=== PATIENT | male | born 1975 | race Caucasian/White ===

== ENCOUNTER → 2016-09-25 | Outpatient (CLI) | payer BC ==
[~2016-09-25] MED LIST: PANT1TAB48 PO; ZLF/100 PO
[2016-09-25 12:37] LABS: BASO % 0.3 %; BASO ABS # 0.02 K/uL (0-0.2); COMPLETE YES; HEMATOCRIT 46.8 % (42-52); IG% 0.1 %; LYMPH % 40.2 %; LYMPH ABS # 2.69 K/uL (1.2-3.4); MEAN CELL VOLUME 87.8 fL (80-100); MEAN CORPUSCULAR HEMOGLOBIN 31.7 pg (25-34); MEAN CORPUSCULAR HGB CONC 36.1 g/dl (32-36); MONO % 6.3 %; NEUT % 50.1 %; PLATELET COUNT 185 K/uL (130-400); RED BLOOD COUNT 5.33 M/uL (4.7-6.1); WHITE BLOOD COUNT 6.69 K/uL (4.8-10.8)
[2016-09-25 12:57] LABS: THYROID STIMULATING HORMONE 1.27 uIu/ml (0.300-4.500)
== END | disposition home or self-care (01) ==
LOC: C.LABBFT 08:16
PROVIDERS: ATTEND Psychiatry & Neurology Psychiatry
DX: F41.1 Generalized anxiety disorder (principal)

== ENCOUNTER 2024-07-25 10:49 | Observation (INO) ==
--- NOTE | 2024-07-21 10:22 | Anesthesiology Consultation ---
Date of Service July 21, 2024 Assessment & Plan (1) Encounter for pre-operative examination: - Infectious disease screening: Per assessment on 07/21/24- No known recent infectious disease contacts or current infectious disease symptoms. - [facility] ER visit (07/12/24): "The patient presents with complaint of lower back pain radiating down the right leg, as well as wrapping around to the right testicle as well. The patient denies any testicular or scrotal swelling. He also reports that he had a incontinence this past Wednesday while sitting in a chair. Given the patient's presenting symptoms, I did feel that MRI imaging was warranted, which showed evidence for a large central disc herniation versus disc fragment at L5-S1, with additional severe mass effect against the thecal sac, as well as compression against the right descending S1 nerve root. The case was discussed with Dr. Marin, spine surgeon, who recommended outpatient management as long as the patient has adequate pain control. It is noted that the patient was only administered IV Toradol and Decadron with good pain relief, and the patient felt comfortable with outpatient management. Contact information was provided for Dr. Marin. The patient was welcomed to return to the emergency department for any progressively worsening symptoms." Chart Review Chart Review: Acceptable Risk for Surgery and Patient seen in Pre Admission Testing Teaching & Discussion Pre-Anesthesia Teaching/Discussion Notes: Instructed NPO after midnight before surgery,except medications with 15 cc of water. Medication instructions provided according to the PAT guidelines. History Surgery Operation Date: 07/25/24 12:50 Proposed Procedures p Right L5-S1 Microdiscectomy - Xavier Marin MD Height/Weight Height: 5 ft 11 in Weight: 129.5 kg Allergies Allergy/AdvReac Type Severity Reaction Status Date / Time No Known Allergies Allergy Unknown Verified 07/20/24 13:36 Medications Home Medications Medication Instructions Recorded Confirmed Last Taken sertraline 100 mg tablet 200 mg (2 x 100 mg) PO QAM Anxiety 08/16/23 07/20/24 Unknown 90 days #180 tabs ibuprofen 800 mg tablet 800 mg PO Q8H PRN pain #30 tabs 04/24/24 07/20/24 Unknown oxycodone 5 mg tablet 5 mg PO Q4H PRN pain #15 tabs 07/12/24 07/20/24 Unknown acetaminophen 500 mg tablet 1,000 mg PO Q6H PRN Pain 12/12/24 12/12/24 Unknown amlodipine 5 mg tablet 5 mg PO QAM 07/20/24 07/20/24 Unknown gabapentin 300 mg capsule 300 mg PO TID #30 caps 07/20/24 07/20/24 Unknown rosuvastatin 5 mg tablet 5 mg PO QAM 07/20/24 07/20/24 Unknown tizanidine 4 mg tablet 4 mg PO BID PRN muscle spasticity 07/20/24 07/20/24 Unknown #30 tabs tramadol 50 mg tablet 50 mg PO TID PRN pain #30 tabs 07/20/24 07/20/24 Unknown Past Medical History Medical History Anxiety and depression Dyslipidemia Essential hypertension GERD (gastroesophageal reflux disease) Lumbar back pain Lumbar disc herniation with radiculopathy Osteoarthritis Exercise / Class Metabolic Activity II 4-5 Yardwork/Stairs/Walk up hill Past Family History Family History Grandmother (Maternal) Colon cancer Father CHF (congestive heart failure) Mother Graves disease Sister Hypothyroidism Other No family history of adverse response to anesthesia Prostate cancer Denies family history of Breast cancer Past Surgical History Surgical History H/O wisdom tooth extraction History of colonoscopy History of esophagogastroduodenoscopy (EGD) Past Anesthesia History No Hx of Anesthesia Complications and No Family Hx of Anesthesia Complications History of PONV No Hx of PONV and No Hx of Motion Sickness Social History Smoking Status: Never smoker Do You Dip or Chew Tobacco: No Hx Alcohol Use: Yes Alcohol type: beer alcohol intake frequency: a few times a week Hx Substance Use: No substance use type: does not use Review of Systems Patient denies chest pain, shortness of breath, dyspnea on exertion, fever, chills, cough, wheezing, palpitations. Physical Exam Vital Signs BP 148/94 P 81 TEMP 98.4 SP02 98%RA RESP 14 Physical Full cervical extension range of motion. Full TMJ range of motion. TMD > 3.5 finger breaths Mallampati Score III Dentition: intact Lungs: clear throughout to auscultation Cardiac: regular rate and rhythm, no murmurs noted Spine: normal Carotid arteries: negative bruit Lab Results Anesthesia Preop Results Results Anesthesia Widget: WBC 4.96 K/ul (4.8-10.8) 07/12/24 Hgb 15.7 g/dl (14.0-18.0) 07/12/24 Hct 44.0 % (42.0-52.0) 07/12/24 Plt 144 K/uL (130-400) 07/12/24 Na 140 mmol/L (136-145) 07/12/24 K 3.9 mmol/L (3.5-5.1) 07/12/24 Cl 107 mmol/L (98-107) 07/12/24 CO2 28 mmol/L (21-32) 07/12/24 BUN 19 mg/dl (6-23) 07/12/24 Creat 1.09 mg/dl (0.6-1.4) 07/12/24 Glucose Level 100 mg/dl (70-99(Fasting)) H 07/12/24 PT 10.9 Seconds (9.0-12.0) 07/12/24 PTT 26 Seconds (21-31) 07/12/24 INR 1.0 (0.9-1.1) 07/12/24 Blood Type O Positive 07/21/24 Antibody Screen NEGATIVE 07/21/24 Testing Electrocardiogram Date: 07/21/24 Findings: + NSR @ (67) Chest X-Ray Date: 07/21/24 FINDINGS: Lungs and pleural spaces: No consolidation or pulmonary edema. No pleural effusion or pneumothorax. Heart: Normal shape and configuration. Mediastinum: Normal contour. Bones/joints: No fracture, erosion or dislocation. IMPRESSION: No abnormality noted. Other Testing Lumbar spine MRI Date: 07/12/24 IMPRESSION: 1. Large central disc extrusion versus sequestered disc fragment at L5-S1 which results in severe central canal stenosis with severe mass effect upon the thecal sac. In addition, this disc herniation results in moderate narrowing of the right lateral recess with posterior displacement of the descending right S1 nerve root. 2. Otherwise, mild degenerative changes within the lumbar spine. 3. No lumbar spine fractures.
[2024-07-25] MEDS: LR 15ML/HR IV SCH (11:30)
[2024-07-25] MEDS: GABAPENTIN 900 MG DOSE PO SCH (11:30)
[2024-07-25] MEDS: LR 60ML/HR IV SCH (11:30)
[2024-07-25] MEDS: ACETAMINOPHEN 500 MG TAB PO SCH (11:31)
[2024-07-25] MEDS ORDERED: NEOSTIGMINE METHYLSULFATE 1 MG/ML 10ML VIAL ONE (13:51)
[2024-07-25] MEDS ORDERED: ONDANSETRON INJ 2 MG/ML 2 ML VIAL ONE (13:51)
[2024-07-25] MEDS ORDERED: LIDOCAINE 2% 2 ML VIAL/AMP(20MG/ML) INFIL ONE (13:51)
[2024-07-25] MEDS ORDERED: DEXAMETHASONE SOD INJ 4 MG/ML VIAL ONE (13:51)
[2024-07-25] MEDS ORDERED: ePHEDrine sulfate 50 MG/ML AMP ONE (13:51)
[2024-07-25] MEDS ORDERED: SUCCINYLCHOLINE CHLORIDE 20 MG/ML 10 ML VIAL IV ONE (13:51)
[2024-07-25] MEDS ORDERED: PHENYLEPHRINE HCL 10 MG/ML VIAL ONE (13:51)
[2024-07-25] MEDS ORDERED: PROPOFOL IV EMULSION 10 MG/ML 20 ML VIAL IV ONE (13:51)
[2024-07-25] MEDS ORDERED: GLYCOPYRROLATE 0.2 MG/ML VIAL ONE (13:51)
[2024-07-25] MEDS ORDERED: MIDAZOLAM HCL 1 MG/ML 2ML VIAL ONE (13:52)
[2024-07-25] MEDS ORDERED: fentaNYL citrate PF 100 MCG/2 ML VIAL ONE ×2 (13:52→17:08)
[2024-07-25] MEDS ORDERED: ePHEDrine sulfate 50 MG/ML AMP IV PRN (14:22)
[2024-07-25] MEDS ORDERED: ONDANSETRON INJ 2 MG/ML 2 ML VIAL IV PRN ×2 (14:22→18:33)
[2024-07-25] MEDS ORDERED: fentaNYL citrate PF 100 MCG/2 ML VIAL IV PRN (14:22)
[2024-07-25] MEDS ORDERED: ATROPINE SULFATE 0.1 MG/ML 10ML SYR IV PRN (14:22)
--- NOTE | 2024-07-25 14:46 | History & Physical Bridge Note ---
Date of Service July 25, 2024 History & Physical Bridge Note I have examined the patient, reviewed the History & Physical and in the interval since the performance of the History & Physical I have noted the following changes of clinical significance: no changes noted
[2024-07-25] MEDS: ceFAZolin 3000MG 3,000 MG/72.5 ML BAG IV SCH (15:07)
[2024-07-25] MEDS ORDERED: ROCURONIUM BROMIDE 10 MG/ML 5 ML VIAL IV ONE (15:47)
[2024-07-25] MEDS: VANCOMYCIN HCL 1000MG/20ML VIAL ONE (18:06)
[2024-07-25] MEDS: BUPIVACAINE/EPINEPHRINE 0.5% MPF 1:200,000 30 ML VIAL ONE (18:07)
[2024-07-25] MEDS: FLOSEAL HEMOSTATIC MATRIX 5ML TOP ONE (18:12)
[2024-07-25] MEDS: GELATIN SPONGE 12-7MM ONE (18:14)
[2024-07-25] MEDS: methylPREDNISolone acetate 40 MG/ML VIAL ONE (18:14)
[2024-07-25] MEDS: THROMBIN 5000 UNITS KIT ONE (18:15)
[2024-07-25] MEDS ORDERED: SUGAMMADEX SODIUM 200 MG/2 ML VIAL IV ONE (18:22)
--- NOTE | 2024-07-25 18:32 | Post Operative Brief Note ---
PG Immediate Post Op with CF Date of Surgery July 25, 2024 Pre & Post Diagnosis Operation Date: 07/25/24 12:50 Pre-Op Diagnosis: Lumbar Disc Herniation with Radiculopathy Post-Op Diagnosis: Lumbar Disc Herniation with Radiculopathy I identified the patient and participated in the time-out.: Yes Procedure Operation Date: 07/25/24 12:50 Actual Procedures p Right L5-S1 Microdiscectomy(Right) - Xavier Marin MD Surgeon Xavier Marin MD Respite Coordinator none Estimated Blood Loss 5 Findings Consistent with Post-Op Diagnosis Specimens Specimen Description: A. L5-S1 Disc
[2024-07-25] MEDS ORDERED: PROMETHAZINE 12.5 MG/50.5 ML BAG IV PRN (18:33)
[2024-07-25] MEDS ORDERED: NALOXONE HCL 0.4 MG/1 ML VIAL/CARP IV PRN (18:33)
[2024-07-25] MEDS ORDERED: hydrOXYzine HCl 25 MG TAB PO PRN (18:33)
[2024-07-25] MEDS ORDERED: SOD PHOSPHATE/SOD BIPHOSPHATE ENEMA 132 ML BTL PR PRN (18:33)
[2024-07-25] MEDS ORDERED: ALUMINUM/MAGNESIUM SUSP 30 ML UDC PO PRN (18:33)
[2024-07-25] MEDS ORDERED: DO NOT ADMINISTER PNEUMOCOCCAL VACCINE PRN (18:33)
[2024-07-25] MEDS ORDERED: ACETAMINOPHEN 1,000 MG/100 ML VIAL IV PRN (18:33)
[2024-07-25] MEDS ORDERED: bisacodyL 10 MG SUPP PR PRN (18:33)
[2024-07-25] MEDS ORDERED: LORazepam 2 MG/1 ML VIAL IV PRN (18:33)
[2024-07-25] MEDS ORDERED: LORazepam 0.5 MG TAB PO PRN (18:33)
[2024-07-25] MEDS ORDERED: MAGNESIUM HYDROXIDE SUSP 30 ML UDC PO PRN (18:33)
[2024-07-25] MEDS ORDERED: FAMOTIDINE 20 MG TAB PO PRN (18:33)
[2024-07-25] MEDS ORDERED: HYDROmorphone INJ 0.5 MG/0.5 ML SYR IV PRN (18:33)
[2024-07-25] MEDS ORDERED: DO NOT ADMINISTER FLU VACCINE PRN (18:33)
[2024-07-25] MEDS ORDERED: METOCLOPRAMIDE HCL INJ 5 MG/ML 2 ML VIAL IV PRN (18:33)
[2024-07-25] MEDS ORDERED: diphenhydrAMINE Capsule 25 MG CAP PO PRN (18:33)
[2024-07-25] MEDS ORDERED: oxyCODONE/ACETAMINOPHEN 5mg/325mg TAB PO PRN (18:33)
[2024-07-25] MEDS ORDERED: ONDANSETRON 4 MG OD TAB PO PRN (18:33)
[2024-07-25] MEDS: MEPERIDINE HCL 25 MG/ML CARP/VIAL IV PRN (18:40)
[2024-07-25] MEDS ORDERED: HYDROmorphone INJ 1 MG/ML SYRINGE IV PRN (18:42)
[2024-07-25] MEDS: KETOROLAC 30 MG/ML VIAL ONE (18:43)
[2024-07-25] MEDS: MEPERIDINE HCL 25 MG/ML CARP/VIAL ONE (18:47)
--- NOTE | 2024-07-25 19:06 | Anesthesiology Progress Note ---
Date of Service July 25, 2024 Anesthesia Post Procedure Vital Signs Vital Signs: Temp Pulse Resp BP Pulse Ox O2 Del Method 07/25/24 19:00 37 C 96 H 12 142/99 H 95 Room Air 07/25/24 18:50 102 H 19 159/102 H 96 Room Air 07/25/24 18:40 106 H 20 162/105 H 96 Room Air 07/25/24 18:33 36.5 C 114 H 13 158/106 H 94 Room Air 07/25/24 11:18 37.0 C 83 18 144/99 H 97 Room Air Pain Intensity Groin: Pain Intensity: 3 Back: Pain Intensity: 2 Transfer of Care Handoff Completed per policy Notes Mental Status: alert / awake / arousable Patient Amnestic to Procedure: Yes Nausea / Vomiting: adequately controlled Pain: adequately controlled Airway Patency, RR, SpO2: stable & adequate BP & HR: stable & adequate Hydration State: stable & adequate Anesthetic Complications: no major complications apparent
[2024-07-25] MEDS: DOCUSATE SODIUM/SENNA 50/8.6MG TAB PO SCH (22:24)
[2024-07-25] MEDS: ceFAZolin 2000MG 2,000 MG/15 ML SYR IV SCH (22:25)
[2024-07-26] MEDS: POLYETHYLENE (MIRALAX) 17 GM PACK PO SCH (06:21)
[2024-07-26] MEDS: ACETAMINOPHEN 500 MG TAB PO PRN (06:29)
--- NOTE | 2024-07-26 07:43 | Fluoroscopy Report ---
FL lumbar spine 2-3V CLINICAL HISTORY: Right L5-S1 microdiscectomy COMPARISON STUDY: MRI 07/12/2024 FLUOROSCOPY TIME: 38.4 seconds FLUOROSCOPY IMAGES: 3 EXPOSURE DOSE: 33.37 mGy FINDINGS: Metallic retractors are present posterior to the L5-S1 disc space. IMPRESSION: Fluoroscopic assistance as above. ACT 112: Negative or not required by law. Electronically signed by: Oz Zamora M.D. 07/26/2024 7:40 AM
[2024-07-26] MEDS: amLODIPine BESYLATE 5 MG TAB PO SCH (08:02)
--- NOTE | 2024-07-26 08:11 | Orthopedic Progress Note ---
Date of Service July 26, 2024 Assessment & Plan (1) Lumbar disc herniation with radiculopathy: Subjective Patient seen and examined, he notes improvement of preoperative right hip pain and right leg symptomatology, some back soreness. Intact motor strength right leg. Impression/plan: Postop day 1 from right L5-S1 microdiscectomy for extruded disc fragment. Patient will be discharged home with follow-up in 2 weeks. Review of Systems All systems reviewed & are unremarkable except as noted in HPI & below. Physical Exam . Results & Data Results & Data Laboratory Results . Diagnostic Findings . PG Care Time/CCT Total # of Minutes Spent Total Time Spent with Patient: Total time spent is greater than 50% in coordination of care (as documented) at patient's floor/unit and/or counseling patient: Coding Level of Care Code 60074 Post Operative Follow-Up Diagnoses Lumbar disc herniation with radiculopathy M51.16
[2024-07-26 10:13] VITALS: BP 132/84; PULSE 82; RESP 18; TEMP 97.9; O2SAT 96
--- NOTE | 2024-07-26 13:31 | Operative Report ---
PG Post Operative Report Pre & Post Diagnosis Operation Date: 07/25/24 12:50 Pre-Op Diagnosis: Lumbar Disc Herniation with Radiculopathy Post-Op Diagnosis: Lumbar Disc Herniation with Radiculopathy I identified the patient and participated in the time-out.: Yes Procedure Operation Date: 07/25/24 12:50 Actual Procedures p Right L5-S1 Microdiscectomy(Right) - Xavier Marin MD Surgeon Xavier Marin MD [place] none Estimated Blood Loss 5 Findings Consistent with Post-Op Diagnosis Specimens Lumbar disc herniation L5-S1 Description of Procedure 1. Right L5-S1 lumbar disc microdiscectomy. (47420) Patient was taken the operating room and after adequate anesthesia was carefully positioned on the Peter frame and checked for positioning. Preprepped was performed of the lumbar region followed by imaging brought in for marking for the approximate location of the incision followed by prepping and draping. Fluoroscopy was used once again to [place] for the approximate location of the incision for the tube access just off midline to the right of L5-S1. A longitudinal incision was then made through the skin and then the fascia then advancing the initial dilator from the NuVasive set into the region of the interlaminar area at L5-S1 on the right side. This was followed by the additional dilators and then the access to mechanism of followed by C arm confirmation of location. Procedure in detail with the operative microscope to be brought in followed by then removing some of the remaining muscle tissue over the interlaminar region right-sided L5-S1. High-speed bur was then utilized to remove some the inferior laminar edge of L5 along the medial facet and the superior lamina edge of S1 on the right side. From here I then carefully removed the ligamentum flavum and this exposed the exiting S1 nerve root, the posterior lumbar disc region bilaterally at L5-S1 and then the disc herniation. This extended between the S1 nerve root and the remaining dural contents posteriorly deviating to the left. Time was spent to use a combination of Floseal and bipolar cautery to address numerous venous bleeders, and then once doing so I then the discectomy was performed utilizing an approach both laterally to the S1 nerve root and then between the remaining central dural contents and the S1 nerve root. Along with some many smaller disc fragments, 2 large disc fragments were finally removed between the S1 nerve root and the posterior dural contents successfully without issue, no evidence of CSF leakage. The area was reexplored additionally with irrigation of the operative site. Some limited bipolar cautery was utilized for any remaining bleeders, Floseal was placed along with vancomycin powder. Operative site was closed with 0 Vicryl sutures in the fascial layer followed by additional 0 Vicryl suture 2-0 Vicryl sutures and willie for the skin. Sterile dressing was applied, the patient was taken to recovery room in satisfactory condition. I attest to the content of the Intraoperative Record and any orders documented therein. Any exceptions are noted below.
--- NOTE | 2024-07-31 12:58 | Discharge Summary ---
Date of Service July 31, 2024 Admission HPI (Per Admitting) Lumbar radiculopathy with disc herniation Principal Diagnosis Same as "Discharge Diagnosis" noted below under Discharge Instructions. Discharge Exam . Discharge Data Procedures Performed Operation Date: 07/25/24 12:50 Actual Procedures p Right L5-S1 Microdiscectomy(Right) - Xavier Marin MD Ordered Studies 07/25/24 07:00 FL spine 1V any level Routine Hospital Course (1) Lumbar disc herniation with radiculopathy: Surgery PG Care Time/CCT Total # of Minutes Spent Total Time Spent with Patient: Total time spent is greater than 50% in coordination of care (as documented) at patient's floor/unit and/or counseling patient: Discharge Plan Discharge Items Patient Disposition: Home - Self-Care Reason For Visit: Lumbar Disc Herniation with Radiculopathy Discharge Diagnosis: lumbar radiculopathy; s/p lumbar spine surgery Activity: As commented below Lifting: No more than 10 pounds Bathing: May shower/bathe in 3 days Weightbearing: Full weightbearing Non-emergency contact: Surgeon Call non-emergency contact if: your pain is worsening Follow-up/Referrals: Maryuri Cote CRNP [Primary Care Provider] - Xavier Marin MD [Surgeon] - (as scheduled) Diet: Regular Addtl Attending Provider Instructions: May shower on 3rd day after surgery. You can wash the incision and surgical site with soap and water briefly and then blot dry with a clean towel/cloth. Cover with a new, sterile dry dressing. If unable to change your dressing, then leave hospital dressing intact and cover the area for showering. Do NOT soak incision. No strenuous activity, lifting, or exercise until further instructed. Use the prescribed pain medicine as needed for pain relief. Pending Studies at Discharge: No Stand-Alone Forms: My [employer], Pain - Opioid Pain Management, Smoking Cessation Medications and DC Order Prescriptions: New oxycodone-acetaminophen [Percocet] 5-325 mg Tablet 1 tab PO Q6H PRN (Reason: pain) Qty: 20 0RF Continued gabapentin 300 mg capsule 300 mg PO TID Qty: 30 2RF ibuprofen 800 mg tablet 800 mg PO Q8H PRN (Reason: pain) Qty: 30 2RF amlodipine [Norvasc] 5 mg tablet 5 mg PO QAM rosuvastatin 5 mg tablet 5 mg PO QAM tizanidine [Zanaflex] 4 mg tablet 4 mg PO BID PRN (Reason: muscle spasticity) sertraline [Zoloft] 100 mg tablet 200 mg PO QAM Held tramadol 50 mg tablet 50 mg PO TID PRN (Reason: pain) Qty: 30 0RF Hold Instructions: until after Percocet prescription is finished Rx Instructions: In addition to the tramadol, take acetaminophen either regular strength or extra, 2 pills. acetaminophen 500 mg Tablet 1,000 mg PO Q6H PRN (Reason: Pain) Hold Instructions: until after Percocet prescription is finished Discontinued oxycodone 5 mg tablet 5 mg PO Q4H PRN (Reason: pain) Qty: 15 0RF Discharge Orders: Discharge Order (Routine); Ordered 07/26/24 Ordered By: Wander Wade/Other Patient Handouts: DVT Post Op Prevention Admission Data Admit Date/Time: 07/25/24 18:33 Attending Provider: Xavier Marin Admit Provider: Xavier Marin Primary Care Provider: Maryuri Cote Other Interventions: Discharge Summary Assessment (RN) Last Done: 07/26/24 09:53
== END 2024-07-26 11:28 | disposition home or self-care (01) ==
LOC: ASU 10:49 → 3W 10:49
DX: F32.A Depression, unspecified; Z68.39 Body mass index [BMI] 39.0-39.9, adult; I10 Essential (primary) hypertension; K21.9 Gastro-esophageal reflux disease without esophagitis; M51.16 Intervertebral disc disorders with radiculopathy, lumbar region; E66.01 Morbid (severe) obesity due to excess calories; Z79.899 Other long term (current) drug therapy; F41.9 Anxiety disorder, unspecified